=== PATIENT | female | born 1955 | race Caucasian/White ===

== ENCOUNTER → 2016-08-04 | Day surgery (SDC) | payer OTHER ==
[~2016-08-04] MED LIST: ACETAMINOPHEN/HYDROcodone 325 MG/5 MG TAB ONE; ANTA750C PO; ASPI325T PO; ATEN-100 PO; ENOX40P SQ; LACTATED RINGER'S 1000 ML INJ 1,000 ML ONE; LEVO.025 PO; LORTA5 PO; MIDAZOLAM HCL 2 MG/2 ML VIAL ONE; PROPOFOL 200 MG/20 ML AMP IV ONE; RANI1TAB5 PO; TEMA15 PO; Z.0.COMMODE-3:1; Z.0.CPM; Z.0.WALKERFRONT
--- NOTE | 2016-08-06 10:33 | MP ---
cc: SHAYLA JADE M.D. 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 SURGEON Shayla Jade MD PROCEDURE Right knee manipulation under anesthesia. Preoperative motion is zero to 90 degrees. Postoperative motion of motion is zero to 130 degrees. ANESTHESIA TIVA PROCEDURE The patient was brought back to the operative theatre. TIVA anesthesia was administered. We examined the knee showing a well-healed incision. Range of motion with zero to 90 degrees. After anesthesia was adequately obtained, we gently manipulated the knee into further flexion. We went through flexion and extension motion multiple different times. We felt the typical tearing of the adhesions as noted with arthrofibrosis and the final range of motion was zero 130 degrees. We took fluoroscopic imaging, AP and lateral the knee showing that the total knee arthroplasty was in excellent position with no complications noted. No fractures noted. Postop plan is continue range of motion aggressively. MD ALFONZO Lowry/MARINA /1:07 PM /10:26 AM
== END | disposition home or self-care (01) ==
LOC: ESDC 11:27
PROVIDERS: ATTEND Orthopaedic Surgery
DX: M24.661 Ankylosis, right knee (principal); Z96.651 Presence of right artificial knee joint
CPT/HCPCS: 01380; 27570; 73560; 76000; J2250; J3010; J7120

== ENCOUNTER → 2017-03-09 | Day surgery (SDC) | payer OTHER ==
[~2017-03-09] MED LIST changes: +BUPIVACAINE/EPINEPHRINE 0.25% 50 ML VIAL ONE; +EPINEPHrine HCL (1:1000) 30 MG/30 ML VIAL ONE; +KETOROLAC TROMETHAMINE 30 MG/ML (IVP) VIAL IV PUSH ONE; +ONDANSETRON HCL 4 MG/2 ML VIAL IV PUSH ONE; +TRIAMCINOLONE ACETONIDE 40 MG/ML VIAL ONE; +ceFAZolin INJ 1,000 MG VIAL ONE
--- NOTE | 2017-03-09 20:33 | MP ---
cc: FAN JADE M.D. DATE OF SURGERY: 03/09/2017 PREOPERATIVE DIAGNOSIS: Right knee arthrofibrosis, status post total knee arthroplasty. POSTOPERATIVE DIAGNOSIS: Right knee arthrofibrosis, status post total knee arthroplasty. SURGEON: Dr. Jaci Jade ELECTROPLATER APPRENTICE: PAXTON Donohue The surgical procedure was assisted by my Advanced Registered Nurse Practitioner. My SPEECH PATHOLOGIST presence was necessary throughout this case for the manipulation and positioning of the surgical extremity. My SPEECH PATHOLOGIST was assisting me throughout the duration of this procedure. The skill set of an Advance Registered Nurse Practitioner was medically necessary to complete this procedure. During the surgical case, the industrial engineering technician was working at the back table and the Advance Registered Nurse Practitioner was directly assisting me. PROCEDURE: Right knee arthroscopic lysis of adhesions, manipulation under anesthesia. TOURNIQUET TIME: Zero minutes. ANESTHESIA: General. PROCEDURE: The patient was brought back to the operative theater. General anesthesia was administered. She received intravenous Ancef. The right lower extremity was prepped and draped in the usual sterile fashion. The range of motion was 0 to 90 degrees. We started with standard inferolateral portal followed by inferomedial portal under spinal needle visualization. We found synovitis in the suprapatellar pouch was significant scarring of the synovium down to the distal femur which was scarred down to the very top of the prosthesis proximally. The patella component was found to be intact without significant scar tissue. No scar tissue was within the patellofemoral joint. There was mild scar tissue in the medial compartment. We used an oscillating shaver to debride this. There was no scar tissue subluxing into the joint itself. There was mild to severe scar tissue over the lateral femoral condyle which was draped over the lateral femoral condyle. This was resected using a combination of shaver and also arthroscopic Bovie. No other scar tissue was subluxing into the joint. There was some scar tissue in the notch which was cleared out. We evaluated the distal femur femoral component and also the polyethylene and found no evidence of early wear of the polyethylene. The ligaments were balanced very nicely. There were no scratches on the metal on the femoral component. We went back up into the suprapatellar pouch and then performed a lysis of adhesions resecting the scar off the distal femur and elevating this. We then went into both the medial and lateral gutters which both had some scar tissue and we resected the scar tissue in both of these areas. We released the capsule beneath the medial and lateral retinaculum as well to allow for further excursion. Once this was completed we did give interarticular injection of 0.25% Marcaine with 20 mg of Kenalog. Portals were closed with 2-0 Vicryl followed by 3-0 nylon. We proceeded with manipulation under anesthesia when the leg was taken out of the leg platt. We were then able to manipulate the knee to 130 degrees which was just blocked by the drapes as far as getting further flexion. This happened fairly easily. The dressings were applied. Postoperative plan is weightbear as tolerated and continued range of motion. Fan Jade MD /MURIEL /5:04 PM /8:22 PM
== END | disposition home or self-care (01) ==
LOC: ESDC 13:56
PROVIDERS: ATTEND Orthopaedic Surgery
DX: M24.661 Ankylosis, right knee (principal); Z96.651 Presence of right artificial knee joint; M23.8X1 Other internal derangements of right knee
CPT/HCPCS: 29884; J0171; J0690; J1885; J2250; J2405; J3010; J3301; J7120